=== PATIENT | male | born 1945 | race Asian ===

== ENCOUNTER 2023-10-21 07:15 | Day surgery (SDC) | payer OTHER, BC ==
[2023-10-21 08:14] VITALS: BMI 23.8
[2023-10-21 09:24] VITALS: TEMP 97.4
[2023-10-21 09:26] VITALS: BP 98/64; PULSE 72; RESP 18
== END 2023-10-21 10:30 | disposition home or self-care (01) ==
LOC: FASU-ENDO 07:15
PROVIDERS: ATTEND Internal Medicine Gastroenterology
PROC: 0DJD8ZZ Inspection of Lower Intestinal Tract, Via Natural or Artificial Opening Endoscopic (ICD-10-PCS; principal; 2023-10-21 08:51)
DX: Z12.11 Encounter for screening for malignant neoplasm of colon (principal); K64.8 Other hemorrhoids; K64.4 Residual hemorrhoidal skin tags; Z80.0 Family history of malignant neoplasm of digestive organs
CPT/HCPCS: G0105 ×2; 82962